=== PATIENT | male | born 2000 | race African-American/Black ===

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

== ENCOUNTER 2022-03-10 12:52 | Emergency (ER) | payer MEDICAID ==
[~2022-03-10] VITALS: Ht 185.4 cm; Wt 92.0 kg
[2022-03-10] MEDS ORDERED: KETOROLAC 60MG/2ML VIAL IM STA (15:12)
[2022-03-10] MEDS ORDERED: BACITRACIN ZINC OINT UDPKT TOP ONE (15:15)
[2022-03-10] MEDS ORDERED: LIDOCAINE HCL/PF 1% 10 MG/ML 5ML VIAL INFIL ONE (15:15)
[2022-03-10 15:40] VITALS: BP 117/57
[2022-03-10] MEDS ORDERED: CEPHALEXIN 250MG CAPSULE PO NR (17:00)
[2022-03-10] MEDS ORDERED: IBUP-2029 PO (17:33)
[2022-03-10] MEDS ORDERED: CEPH500C2 PO (17:33)
== END 2022-03-10 17:51 | disposition home or self-care (01) ==
LOC: ER 14:03
DX: S61.216A Laceration without foreign body of right little finger without damage to nail, initial encounter (principal); S63.266A Dislocation of metacarpophalangeal joint of right little finger, initial encounter; W51.XXXA Accidental striking against or bumped into by another person, initial encounter; Y93.67 Activity, basketball; Y92.9 Unspecified place or not applicable
CPT/HCPCS: 29130; 73130; 73140; 96372; 99284; J1885; J3490